=== PATIENT | male | born 1955 | race Caucasian/White ===

== ENCOUNTER → 2018-01-20 09:41 | Outpatient (CLI) | payer OTHER, SELFPAY ==
[2018-01-20 11:51] LABS: Absolute Lymphocyte Count 1.08 X10^3/ul (0.83-4.51); Absolute Neutrophil Count 2.3 X10^3/uL (2.0-7.7); Basophil# 0.01 X10^3/uL; Basophil% 0.3 % (0-1); Eosinophil# 0.14 X10^3/uL; Eosinophils% 3.5 % (0-5); Hematocrit 44.9 % (40-54); Hemoglobin 14.9 g/dl (13.0-16.5); Lymphocyte # 1.08 X10^3/ul (4.0); Lymphocyte % 27.3 % (19-41); Mean Corp Hgb Conc 33.2 g/gl (32-36); Mean Corpuscular Hgb 31.6 pg (27.0-32.0); Mean Corpuscular Volume 95.1 fL (80-94); Mean Platelet Vol. 9.4 fl (6.2-12.0); Monocyte# 0.42 X10^3/uL; Monocyte% 10.6 % (0-10); Neutrophil # 2.31 X10^3/uL (2.7-7.7); Neutrophil % 58.3 % (47-70); Platelet Count 231 K/mm3 (150-450); RBC Distribution Width CV 13.5 % (11.6-14.6); RBC Distribution Width SD 46.9 fl (35.1-43.9); Red Blood Count 4.72 M/mm3 (4.6-6.2)
[2018-01-20 11:56] LABS: POSITIVE COUNT NO; POSITIVE DIFFERENTIAL NO; POSITIVE MORPHOLOGY NO
[2018-01-20 12:25] LABS: ALB/GLOB Ratio 0.9 RATIO (0.9-2.4); AST(SGOT) 21 U/L (15-37); Alanine Aminotransfer ALT/SGPT 30 U/L (16-61); Albumin, Serum 3.4 g/dL (3.2-5.0); Alkaline Phosphatase 47 U/L (45-117); Anion Gap 7 (5-15); BUN 15 mg/dL (7-18); BUN/Creat Ratio 17.3 RATIO (10-20); Calcium,Total 8.3 mg/dL (8.5-10.1); Chloride 108 mmol/L (98-107); Creatinine, Serum 0.87 mg/dL (0.70-1.30); EST Glomerular Filtration Rate 94 mL/min (>60); Est Glom Filt Rate - Afr Amer 113 mL/min (>60); Globulin 3.7 g/dL (2.2-4.2); Glucose 91 mg/dL (74-106); PSA,Total- Diagnostic 4.02 ng/mL (0.0-4.0); Potassium 4.2 mmol/L (3.5-5.1); Protein, Total 7.1 g/dL (6.4-8.2); Sodium Level 140 mmol/L (136-145); Thyroid Stim Hormone (TSH) 0.77 uIU/mL (0.358-3.74)
== END ==
PROVIDERS: Family Provider Family Medicine; PCP Family Medicine; Visit Provider Family Medicine
DX: G47.30 Sleep apnea, unspecified (principal); R97.20 Elevated prostate specific antigen [PSA]
CPT/HCPCS: 36415; 80053; 84153; 84443; 85025

== ENCOUNTER 2020-01-21 11:54 | Outpatient (RCR) | payer OTHER, SELFPAY ==
--- NOTE | 2020-01-21 13:11 | HP.PTEVAL ---
Patient's Visit Information DAWIT CRAFT is a 64 year old M referred to Physical Therapy by HUNTER Wallace with a diagnosis of BPPV. Date of Evaluation: 01/21/20 Physical Therapist: MICHELLE Montano - Visit Plan Plan: Recommmend pt go back to family physician as he feels that something else is going on. He reports that he is able to see a specialist on his own and might do that. DC PT at this time back to family physician. - Subjective Findings: Pt has some dizziness and ringing in his ears. Ringing in ears started 3-5 weeks ago and the dizziness started about a week ago. The ringing and dizziness comes and goes. His dizziness is where he feels light headed and difficult to get around. He does not have any certain movement that brings it on. No dizziness with rolling R or L in bed. He does not notice dizziness when he is laying down or sitting. He only notices it when up and with movment. He has some LOB but only occassionally. His balance was really bad Friday and when he decided to call the Dr. Locke dizziness was constant Friday and could not function but since that morning and now is occ light headedness. His BP has been pushing borderline bad for a few years but not on BP meds. did the what he describes the Hallpike and he said he was dizzy both directions - Objective -HALLPIKE B negative B for dizziness and nystagmus. CATSIB 110. FGA: . VOR X 1 and saccades vertical and horizontal no dizzienss and good smooth movement. - Balance Scores Functional Gait Assessment Score: 28 % Disability: 6.6700 CATSIB Score (Max score 120 seconds): 110 - Rehabilitation Potential Rehabilitation Potential: Good - Anticipated Interventions Thank you for the opportunity to evaluate your patient. For Medicare and Medicare HMO plans, please review the plan of care and approve it. It will need to be FAXED BACK to us at [phone] for Medicare purposes. For Medicare only, by signing this I certify the plan of care. Please let me know if there are questions or concerns regarding this plan of care. Physician Signature: Date:
--- NOTE | 2020-04-20 13:29 | HP.PT.NRP ---
DAWIT Beltran VENANCIO was seen in my office for initial evaluation on 01/21/20. The following Plan of Care was established for this patient: This patient was last seen in our office 01/21/20. Pertinent comments regarding their Physical therapy will appear below: DC PT at this time. At this point I will be discontinuing this patient from physical therapy. I would be happy to see this patient again in the future if found appropriate by the physician. Thank you! Jennifer Driver, MPT
== END 2020-01-21 19:00 | disposition home or self-care (01) ==
LOC: PT 11:54
PROVIDERS: PCP Family Medicine; Referring Provider Registered Nurse; Visit Provider Registered Nurse
DX: H81.10 Benign paroxysmal vertigo, unspecified ear (principal)
CPT/HCPCS: 97161

== ENCOUNTER → 2020-09-14 08:40 | Outpatient (CLI) | payer OTHER, SELFPAY ==
[2020-09-14 10:38] LABS: ALB/GLOB Ratio 0.9 RATIO (0.9-2.4); AST(SGOT) 18 U/L (15-37); Alanine Aminotransfer ALT/SGPT 23 U/L (16-61); Albumin, Serum 3.4 g/dL (3.2-5.0); Alkaline Phosphatase 58 U/L (45-117); Anion Gap 6 (5-15); BUN 10 mg/dL (7-18); BUN/Creat Ratio 11.3 RATIO (10-20); Chloride 109 mmol/L (98-107); Cholesterol 180 mg/dL (200); Creatinine, Serum 0.89 mg/dL (0.70-1.30); EST Glomerular Filtration Rate 91 mL/min (>60); Est Glom Filt Rate - Afr Amer 110 mL/min (>60); Globulin 3.8 g/dL (2.2-4.2); Glucose 113 mg/dL (74-106); High Density Lipoprotein 77 mg/dL; PSA,Total- Diagnostic 5.62 ng/mL (0.0-4.0); Protein, Total 7.2 g/dL (6.4-8.2); Sodium Level 140 mmol/L (136-145); Thyroid Stim Hormone (TSH) 1.34 uIU/mL (0.358-3.74); Triglycerides 53 mg/dL; Very Low Density Lipoprotein 11 mg/dL (5-40)
== END ==
PROVIDERS: PCP Family Medicine; Referring Provider Family Medicine; Visit Provider Family Medicine
DX: N40.0 Benign prostatic hyperplasia without lower urinary tract symptoms (principal); Z13.220 Encounter for screening for lipoid disorders; R97.20 Elevated prostate specific antigen [PSA]
CPT/HCPCS: 36415; 80053; 80061; 84153; 84443

== ENCOUNTER 2021-01-18 10:33 | Outpatient (RCR) | payer OTHER, SELFPAY ==
[2021-01-18] MEDS: COVID-19 VACC, MRNA(PFIZER)/PF 30 MCG/0.3 ML SYRINGE IM (18:28)
[2021-02-08] MEDS: COVID-19 VACC, MRNA(PFIZER)/PF 30 MCG/0.3 ML SYRINGE IM (17:37)
== END 2021-01-18 23:59 ==
LOC: IMMUN 10:33
PROVIDERS: PCP Family Medicine; Referring Provider Family Medicine; Visit Provider Family Medicine
DX: Z23 Encounter for immunization (principal)
CPT/HCPCS: 0001A; 0002A; 91300

== ENCOUNTER 2022-02-27 13:43 | Outpatient (CLI) | payer OTHER, SELFPAY ==
[2022-02-27 16:20] LABS: ALB/GLOB Ratio 0.9 RATIO (0.9-2.4); AST(SGOT) 24 U/L (15-37); Alanine Aminotransfer ALT/SGPT 34 U/L (16-61); Albumin, Serum 3.7 g/dL (3.2-5.0); Alkaline Phosphatase 60 U/L (45-117); Anion Gap 3 (5-15); BUN 16 mg/dL (7-18); BUN/Creat Ratio 14.3 RATIO (10-20); Calcium,Total 8.7 mg/dL (8.5-10.1); Chloride 108 mmol/L (98-107); Creatinine, Serum 1.12 mg/dL (0.70-1.30); EST Glomerular Filtration Rate 69 mL/min (>60); Est Glom Filt Rate - Afr Amer 84 mL/min (>60); Globulin 3.9 g/dL (2.2-4.2); Glucose 100 mg/dL (74-106); PSA,Total- Diagnostic 7.76 ng/mL (0.0-4.0); Potassium 4.1 mmol/L (3.5-5.1); Protein, Total 7.6 g/dL (6.4-8.2); Sodium Level 138 mmol/L (136-145); Vitamin D,25 Hydroxy 37.4 ng/mL
[2022-02-27 16:31] LABS: Hemoglobin A1c 5.5 % (3.8-5.6)
[2022-02-28 08:14] LABS: PTHIN 41.7 pg/mL (18.4-80.1)
== END 2022-02-27 23:59 | disposition home or self-care (01) ==
PROVIDERS: PCP Family Medicine; Referring Provider Family Medicine; Visit Provider Family Medicine
DX: E87.6 Hypokalemia (principal); R97.20 Elevated prostate specific antigen [PSA]; R73.01 Impaired fasting glucose
CPT/HCPCS: 36415; 80053; 82306; 83036; 83735; 83970; 84153

== ENCOUNTER → 2022-06-06 | Outpatient (CLI) | payer OTHER, SELFPAY ==
[2022-06-06 12:36] LABS: PSA,Total- Diagnostic 7.36 ng/mL (0.0-4.0)
[2022-06-07 13:22] LABS: PSA, Free 0.76 ng/mL; PSA, Total Ultrasensitive 6.1 ng/mL (0.0-4.0)
[2022-06-07 13:23] LABS: PSA, Free % 12.5 % (.)
== END | disposition home or self-care (01) ==
LOC: MFPLAB 10:38
PROVIDERS: PCP Family Medicine; Referring Provider Family Medicine; Visit Provider Family Medicine
DX: R97.20 Elevated prostate specific antigen [PSA] (principal)
CPT/HCPCS: 36415; 84153; 84154

== ENCOUNTER → 2022-12-23 | Outpatient (CLI) | payer OTHER, SELFPAY ==
[2022-12-23 16:00] LABS: PSA,Total- Diagnostic 6.26 ng/mL (0.0-4.0)
== END | disposition home or self-care (01) ==
LOC: MFPLAB 11:45
PROVIDERS: PCP Family Medicine; Referring Provider Family Medicine; Visit Provider Family Medicine
DX: R97.20 Elevated prostate specific antigen [PSA] (principal)
CPT/HCPCS: 36415; 84153

== ENCOUNTER → 2023-05-14 | Outpatient (CLI) | payer OTHER, SELFPAY ==
[2023-05-14 16:54] LABS: PSA,Total- Diagnostic 5.81 ng/mL (0.0-4.0)
== END | disposition home or self-care (01) ==
LOC: MFPLAB 12:10
PROVIDERS: PCP Family Medicine; Visit Provider Urology
DX: R97.20 Elevated prostate specific antigen [PSA] (principal)
CPT/HCPCS: 36415; 84153

== ENCOUNTER → 2023-12-30 | Outpatient (CLI) | payer OTHER, SELFPAY ==
--- OUTSIDE RECORDS SUMMARY | 2023-12-30 11:50 | XMS RPT_ITS | CCD ---
Author Name Unknown Address [address] [place] [address] Organization [facility] Care Team Providers Care Unhairing Inspector Name Role Phone Rivas Muñoz Unavailable Unavailable Unavailable Dr. Rivas Muñoz Primary Care Unavailable Adan DUTTON, Dr. Dawit Noble Attending Radha Arellano II, Dr. Dawit Noble Referring Radha Arellano II, Dr. Dawit Noble Attending Radha Arellano II, Dr. Dawit Noble Referring Dr. Rivas Mckinley Primary Care Unavailable Medications Completed/Discontinued Medications Medication Drug Class(es) Dates Sig (Normalized) Sig (Original) 24 hr alfuzosin hydrochloride 10 mg extended release oral tablet (2 sources) alpha-Adrenergic Carley Uroxatral 10 MG Oral Tablet Extended Release 24 Hour Quantity: 0 Refills: 0 Ordered: 14-May-2023 DO Active aspirin 81 mg oral tablet (3 sources) Platelet Aggregation Inhibitor, Nonsteroidal Anti-inflammatory Drug Aspirin 81 MG TABS Quantity: 0 Refills: 0 Ordered: 14-May-2023 DO Active tadalafil 5 mg oral tablet (1 source) Phosphodiesterase 5 Inhibitor Start: 06-11-2023 take 1 tablet by mouth once daily Tadalafil 5 MG Oral Tablet Take 1 tablet daily Quantity: 90 Refills: 3 Ordered: 16-Jun-2023 Dawit Arellano II, MD Start : 11-Jun-2023 Active Problems Problem Classification Problem Date Documented Da te Episodic/Chronic Genitourinary symptoms and ill-defined conditions (3 sources) Nocturia; Translations: [Nocturia] Episodic Hyperplasia of prostate (3 sources) Benign prostatic hypertrophy with outflow obstruction; Translations: [Benign localized hyperplasia of prostate with urinary obstruction and other lower urinary tract symptoms (LUTS)] Chronic Other screening for suspected conditions (not mental disorders or infectious disease) (7 sources) Raised prostate specific antigen; Translations: [Elevated prostate specific antigen [PSA]] Onset: 06-04-2023 Episodic Results Test Name Value Interpretation Reference Range Facil ity Vital Signs Date Time Vital Sign Value Performing Clinician Faci lity 06-11-2023 14:12-0400 Body mass index (BMI) [Ratio] 26.08 kg/m2 Rivas A [facility] Phone: [facility] Work Phone: 06-11-2023 14:12-0400 Body surface area Derived from formula 2.05 m2 Rivas Dallin [facility] Phone: [facility] Work Phone: 06-11-2023 14:12-0400 Body weight 84.82 kg Rivas A [facility] Phone: [facility] Work Phone: 06-11-2023 14:12-0400 Respiratory rate 16 /min Rivas Dallin [facility] Phone: [facility] Work Phone: 05-14-2023 10:52-0400 Body height 180.34 cm Rivas A [facility] Phone: [facility] Work Phone: 05-14-2023 10:52-0400 Body mass index (BMI) [Ratio] 26.1 kg/m2 Rivas Dallin [facility] Phone: [facility] Work Phone: 05-14-2023 10:52-0400 Body surface area Derived from formula 2.05 m2 Rivas Dallin [facility] Phone: [facility] Work Phone: 05-14-2023 10:52-0400 Body weight 84.88 kg Rivas A [facility] Phone: [facility] Work Phone: 05-14-2023 10:52-0400 Diastolic blood pressure 100 mm[Hg] Rivas Zamarripa Toni Work Phone: [facility] Work Phone: 05-14-2023 10:52-0400 Heart rate 57 /min Rivas Dallin Muñoz Work Phone: [facility] Work Phone: 05-14-2023 10:52-0400 Systolic blood pressure 180 mm[Hg] Rivas Zamarripa Toni Work Phone: [facility] Work Phone: Encounters Encounter Date Encounter Type Care Provider Facility Start: 06-16-2023 AUDIT Rivas Muñoz Work Phone: [facility] Work Phone: Start: 06-09-2023 Chart Update Rivas Muñoz Work Phone: [id number] DO Work Phone: Start: 06-04-[address] Dawit Arellano II Facility:[id number] Start: 05-14-2023 Office outpatient ne w 45 minutes Rivas Muñoz Work Phone: [facility] Work Phone: Start: 05-14-[address] Rivas Muñoz Facili ty:[id number] Procedures Date Procedure Procedure Detail Performing Clinician Hernia repair Rivas Muñoz Work Phone: Plan of Treatment Date Care Activity Detail Author Start: 06-11-2023 FUV, Provider: Dawit Arellano II, Status: Pen, Time: 2:00 PM FUV, Provider: Dawit Arellano II, Status: Pen, Time: 2:00 PM [id number] Work Phone: Payers Date Payer Category Payer Unknown [id number] 1955 Unknown [id number] Unknown COMMERCIAL Unknown [id number] Social History Date Type Detail Facility Former smoker Former smoker [id number] Work Phone: History of Present illness Narrative 01-09-2023 Note Date & Type Note Facility 01-09-2023 History of Presen t illness Narrative Patient is here today for elevated PSA..Most recent PSA was 6.26 on 01/09. Prior PSA was 7.36 on 06/07. Prior PSA was 7.76 on 03/08. Prior PSA was 5.62 on 07/2020. Never had a bx or MRI. . No fhx. . Chronic BPH sx are mild and stable. Denies urgency and frequency. Denies dysuria. Denies hematuria. Nocturia x1. He is taking Uroxatral. No hx of kidney stones. No Hx of UTI. ED is not an issue [id number] Phone: Chief Complaint ELEVATED PSA Family History Unknown Family Member Name Dates Details No pertinent family history: Mother, Father(V49.89, Z78.9) Status:Active Unknown Family Member Name Dates Details No pertinent family history: Mother, Father(V49.89, Z78.9) Status:Active Unknown Family Member Name Dates Details No pertinent family history: Mother, Father(V49.89, Z78.9) Status:Active Summary Purpose Advance Directives No Advanced Directives Records FoundNo Advanced Directives Records FoundNo Advanced Directives Records Found Additional Source Comments (unrecognized sect ion and content) No Status Records FoundNo Status Records FoundNo Status Records Found INFORMATION SOURCE (unrecogn ized section and content) DATE CREATED AUTHOR AUTHOR'S ORGANIZ ATION 05/28/2023 [facility] DATE CREATED AUTHOR AUTHOR'S ORGANIZ ATION 06/09/2023 [facility] FOR RECORDS PERTAINING TO PATIENTS WHO ARE OR HAVE BEEN ENROLLED IN A CHEMICAL DEPENDENCY/SUBSTANCEABUSE PROGRAM, SOME INFORMATION MAY BE OMITTED. This clinical summary was aggregated from multiple sources. Caution should be exercised in using it in the provision of clinical care. This summary normalizes information from multiple sources, and as a consequence, information in this document may materially change the coding, format and clinical context of patient data. In addition, data may be omitted in some cases. CLINICAL DECISIONS SHOULD BE BASED ON THE PRIMARY CLINICAL RECORDS. [facility]. provides no warranty or guarantee of the accuracy or completeness of information in this document.
[2023-12-30 15:26] LABS: PSA,Total- Diagnostic 5.89 ng/mL (0.0-4.0)
== END | disposition home or self-care (01) ==
LOC: MFPLAB 11:31
PROVIDERS: PCP Family Medicine; Visit Provider Family Medicine
DX: R35.1 Nocturia (principal)
CPT/HCPCS: 36415; 84153

== ENCOUNTER → 2024-07-01 | Outpatient (CLI) | payer OTHER, SELFPAY ==
[2024-07-01 10:08] LABS: Absolute Lymphocyte Count 1.28 X10^3/uL (0.83-4.51); Absolute Neutrophil Count 2.3 X10^3/uL (2.0-7.7); Basophil# 0.03 X10^3/uL; Basophil% 0.7 % (0-1); Eosinophil# 0.21 X10^3/uL; Eosinophils% 4.9 % (0-5); Hematocrit 42.6 % (40-54); Lymphocyte # 1.28 X10^3/ul (0.83-4.51); Mean Corp Hgb Conc 32.9 g/dL (32-36); Mean Corpuscular Hgb 31.1 pg (27.0-32.0); Mean Corpuscular Volume 94.7 fL (80-94); Mean Platelet Vol. 9.1 fl (6.2-12.0); Monocyte# 0.41 X10^3/uL; Monocyte% 9.6 % (0-10); NRBC Flagged by Analyzer 0 % (0-5); Neutrophil # 2.33 X10^3/uL (2.7-7.7); Neutrophil % 54.6 % (47-70); Platelet Count 260 K/mm3 (150-450); RBC Distribution Width CV 13.2 % (11.6-14.6); RBC Distribution Width SD 45.8 fl (35.1-43.9); White Blood Count 4.3 K/mm3 (4.4-11.0)
[2024-07-01 10:51] LABS: ALB/GLOB Ratio 0.9 RATIO (0.9-2.4); AST(SGOT) 33 U/L (15-37); Alanine Aminotransfer ALT/SGPT 24 U/L (16-61); Albumin, Serum 3.4 g/dL (3.2-5.0); Alkaline Phosphatase 66 U/L (45-117); Anion Gap 8 (5-15); BUN 14 mg/dL (7-18); BUN/Creat Ratio 14.6 RATIO (10-20); Calcium,Total 8.2 mg/dL (8.5-10.1); Chloride 108 mmol/L (98-107); Cholesterol 180 mg/dL (200); Creatinine, Serum 0.96 mg/dL (0.70-1.30); EST Glomerular Filtration Rate 82 mL/min (>60); Est Glom Filt Rate - Afr Amer 99 mL/min (>60); Globulin 3.7 g/dL (2.2-4.2); Glucose 93 mg/dL (74-106); High Density Lipoprotein 79 mg/dL; PSA,Total- Diagnostic 5.22 ng/mL (0.0-4.0); Potassium 3.9 mmol/L (3.5-5.1); Protein, Total 7.1 g/dL (6.4-8.2); Sodium Level 139 mmol/L (136-145); Triglycerides 49 mg/dL; Very Low Density Lipoprotein 10 mg/dL (5-40)
== END | disposition home or self-care (01) ==
LOC: MFPLAB 08:05
PROVIDERS: PCP Family Medicine; Referring Provider Urology; Visit Provider Urology
DX: R97.20 Elevated prostate specific antigen [PSA] (principal); Z13.220 Encounter for screening for lipoid disorders
CPT/HCPCS: 36415; 80053; 80061; 84153; 85025

== ENCOUNTER → 2025-01-21 | Outpatient (CLI) | payer OTHER, MEDICARE, SELFPAY ==
[2025-01-21 12:49] LABS: PSA,Total- Diagnostic 3.77 ng/mL (0.00-4.00)
== END | disposition home or self-care (01) ==
LOC: MFPLAB 10:26
PROVIDERS: PCP Family Medicine; Visit Provider Urology
DX: R97.20 Elevated prostate specific antigen [PSA] (principal)
CPT/HCPCS: 36415; 84153

== ENCOUNTER → 2025-02-21 | Outpatient (CLI) | payer MEDICARE, OTHER, SELFPAY ==
[2025-02-21 11:37] LABS: ALB/GLOB Ratio 1.2 RATIO (0.9-2.4); AST(SGOT) 22 U/L (<=37); Alanine Aminotransfer ALT/SGPT 18 U/L (<=46); Alkaline Phosphatase 56 U/L (40-129); Anion Gap 11 (5-15); BUN 12 mg/dL (4-19); Calcium,Total 8.8 mg/dL (7.6-11.0); Carbon Dioxide 22.3 mmol/L (21.0-32.0); Chloride 107 mmol/L (98-108); Cholesterol 182 mg/dL (<=200); Creatinine, Serum 0.98 mg/dL (0.70-1.20); EST Glomerular Filtration Rate 82 (>60); Globulin 3.3 g/dL (2.2-4.2); Glucose 110 mg/dL (70-99); High Density Lipoprotein 78 mg/dL; Low Density Lipoprotein Calc. 94 mg/dL; Magnesium 2.4 mg/dL (1.5-2.2); Potassium 4.1 mmol/L (3.3-5.1); Protein, Total 7.2 g/dL (5.9-8.4); Sodium Level 140 mmol/L (133-145); Total Bilirubin 0.77 mg/dL (0.00-1.30); Triglycerides 51 mg/dL; Very Low Density Lipoprotein 10 mg/dL (5-40); cholesterol:hdl ratio screen 2.35
== END | disposition home or self-care (01) ==
LOC: MFPLAB 08:29
PROVIDERS: PCP Family Medicine; Referring Provider Family Medicine; Visit Provider Family Medicine
DX: K58.9 Irritable bowel syndrome, unspecified (principal); G47.33 Obstructive sleep apnea (adult) (pediatric)
CPT/HCPCS: 36415; 80053; 80061; 83735